=== PATIENT | male | born 1950 | race Two or more races ===

== ENCOUNTER 2023-09-23 12:41 | Emergency (ER) | payer MEDICARE, OTHER ==
[~2023-09-23] VITALS: Ht 175.3 cm; Wt 104.3 kg
[2023-09-23] MEDS ORDERED: HYDROCODONE/APAP 5/325MG TABLET ONE (13:30)
[2023-09-23] MEDS ORDERED: IBUPROFEN 600 MG TABLET ONE (13:30)
[2023-09-23] MEDS: HYDROCODONE/APAP 5/325MG TABLET PO ONE (13:33)
[2023-09-23] MEDS: IBUPROFEN 600 MG TABLET PO ONE (13:33)
[2023-09-23] MEDS ORDERED: IBUP-1953 PO (14:24)
[2023-09-23 15:10] VITALS: BP 141/75; TEMP 98; O2SAT 99
== END 2023-09-23 15:10 | disposition home or self-care (01) ==
LOC: ER 12:50
DX: S63.591A Other specified sprain of right wrist, initial encounter (principal); I10 Essential (primary) hypertension; E11.9 Type 2 diabetes mellitus without complications; W01.0XXA Fall on same level from slipping, tripping and stumbling without subsequent striking against object, initial encounter; Y93.89 Activity, other specified; Y92.89 Other specified places as the place of occurrence of the external cause; Y99.8 Other external cause status
CPT/HCPCS: 73110; 73130-TC